=== PATIENT | female | born 1975 | race Caucasian/White ===

== ENCOUNTER 2017-05-11 17:52 | Emergency (ER) | payer SELFPAY ==
[2017-05-11 17:56] VITALS: PULSE 73; TEMP 98.3; BMI 25.0
--- NOTE | 2017-05-11 18:18 | PDOC ---
Attending Attestation - Resident Resident Name: Errol Ty - ED Attending Attestation I have performed the following: I have examined & evaluated the patient, The case was reviewed & discussed with the resident, I agree w/resident's findings & plan, Exceptions are as noted - HPI HPI: 05/11/17 19:49 Pt presents to the ED complaining of a three day history of left sided abdominal pain, nausea and vomiting. - Physicial Exam PE: 05/11/17 19:50 Abdomen is diffusely tender on the left side on my exam, without guarding or rebound. - Medical Decision Making 05/11/17 19:50 Pt presents to the ED complaining of L sided abdominal pain. HIstory of gastric weightloss surgery in [place]. Denies fever. Normal BM today. GIven history of gastric surgery, I am concerned for leak vs obstruction. will check CT and and reassess. Patient is also complaining of dysuria. Will check UA.
--- NOTE | 2017-05-11 18:27 | PDOC ---
History of Present Illness - General Chief Complaint: Pain Stated Complaint: ABD PAIN Time Seen by Provider: 05/11/17 18:16 - History of Present Illness Initial Comments: 05/11/17 18:28 Ms. Wyman is a 41 yo female with a significant past medical history of bariatric surgery who presents to the emergency department with a 2 day history of left sided abdominal pain with occasional nausea and vomiting. She says that the pain is intermittent and "stabbing" and that the pain causes the vomiting. Also, she reports pain increases while having bowel movements although her BM's are normal. The patient denies chest pain, shortness of breath, headache and dizziness. Denies fever, chills, nausea, vomit, diarrhea and constipation. Denies dysuria, frequency, urgency and hematuria. Allergies: Aspirin Past History - Past Medical History Allergies/Adverse Reactions: Allergies Allergy/AdvReac Type Severity Reaction Status Date / Time aspirin Allergy Mild "WATER Verified 05/11/17 17:54 BUMPS" Home Medications: Ambulatory Orders NK [No Known Home Medication] 08/30/15 Asthma: Yes - Immunization History Immunization Up to Date: Yes - Suicide/Smoking/Psychosocial Hx Smoking Status: No Smoking History: Never smoked Number of Cigarettes Smoked Daily: 0 Hx Alcohol Use: No Drug/Substance Use Hx: No Substance Use Type: None Review of Systems - Review of Systems Comments:: 05/11/17 18:28 GENERAL/CONSTITUTIONAL: No fever or chills. No weakness. HEAD, EYES, EARS, NOSE AND THROAT: No change in vision. No ear pain or discharge. No sore throat. CARDIOVASCULAR: No chest pain or shortness of breath RESPIRATORY: No cough, wheezing, or hemoptysis. GASTROINTESTINAL: +Pain to left side of abdoment that increases while defacating. +Nausea with vomiting from pain intermittently. No constipation. GENITOURINARY: No dysuria, frequency, or change in urination. MUSCULOSKELETAL: No joint or muscle swelling or pain. No neck or back pain. SKIN: No rash NEUROLOGIC: No headache, vertigo, loss of consciousness, or change in strength/ sensation. ENDOCRINE: No increased thirst. No abnormal weight change HEMATOLOGIC/LYMPHATIC: No anemia, easy bleeding, or history of blood clots. ALLERGIC/IMMUNOLOGIC: No hives or skin allergy. *Physical Exam - Vital Signs Last Vital Signs Temp Pulse Resp BP Pulse Ox 98.3 F 73 18 130/57 100 05/11/17 17:53 05/11/17 17:53 05/11/17 17:53 05/11/17 17:53 05/11/17 17:53 - Physical Exam Comments: 05/11/17 18:29 GENERAL: Awake, alert, and fully oriented, in no acute distress HEAD: No signs of trauma, normocephalic, atraumatic EYES: PERRLA, EOMI, sclera anicteric, conjunctiva clear ENT: Auricles normal inspection, hearing grossly normal, nares patent, oropharynx clear without exudates. Moist mucosa NECK: Normal ROM, supple, no lymphadenopathy, JVD, or masses LUNGS: No distress, speaks full sentences, clear to auscultation bilaterally HEART: Regular rate and rhythm, normal S1 and S2, no murmurs, rubs or gallops, peripheral pulses normal and equal bilaterally. ABDOMEN: +Acutely tender in LUQ and LLQ of abdomen to palpation. Soft, normoactive bowel sounds. No guarding, no rebound. No masses EXTREMITIES: Normal inspection, Normal range of motion, no edema. No clubbing or cyanosis. NEUROLOGICAL: Cranial nerves II through XII grossly intact. Normal speech, normal gait, no focal sensorimotor deficits SKIN: Warm, Dry, normal turgor, no rashes or lesions noted. ED Treatment Course - LABORATORY CBC & Chemistry Diagram: 05/11/17 18:40 05/11/17 18:40 Medical Decision Making - Medical Decision Making 05/11/17 19:00 Ms. Wyman presents with left sided abdominal pain with history of gastric surgery for weightloss in [place]. Patient to CT for evaluation of abdominal pain. 05/11/17 19:03 Patient signed out to Dr. Olivarez for further evaluation.
[2017-05-11] MEDS ORDERED: SODIUM CHLORIDE 1,000 ML IV STA (18:29)
[2017-05-11 18:51] VITALS: BP 130/58
[2017-05-11 19:02] LABS: BASOPHIL 1.2 % (0-2.0); EOSINOPHIL 3.7 % (0-4.5); MCH 28.4 pg (25.7-33.7); MCHC 33.7 g/dl (32.0-36.0); MEAN CELL VOLUME 84.5 fl (80-96); MEAN PLT VOLUME 7.5 fl (7.5-11.1); NEUTROPHILS 44.1 % (42.8-82.8); PLATELET COUNT 363 K/MM3 (134-434); RDW 15.4 % (11.6-15.6); WHITE BLOOD COUNT 5.5 K/mm3 (4.0-10.0)
[2017-05-11 19:28] LABS: ALBUMIN 3.6 g/dl (3.4-5.0); ANION GAP 5 (8-16); CALCIUM 8.3 mg/dL (8.5-10.1); CO2 28 mmol/L (21-32); CREATININE 0.7 mg/dL (0.55-1.02); GLUCOSE,RANDOM 92 mg/dL (74-106); SGPT/ALT 17 U/L (12-78)
[2017-05-11 19:39] LABS: ALK PHOS 54 U/L (45-117); BILIRUBIN,TOTAL 0.4 mg/dL (0.2-1.0); SGOT/AST 14 U/L (15-37); TOT PROT 7.1 g/dl (6.4-8.2)
[2017-05-11 19:43] LABS: URINE APPEARANCE CLEAR; URINE BILIRUBIN NEGATIVE (NEGATIVE); URINE BLOOD 2+ (NEGATIVE); URINE COLOR YELLOW; URINE GLUCOSE (UA) NEGATIVE (NEGATIVE); URINE KETONE NEGATIVE (NEGATIVE); URINE NITRITE NEGATIVE (NEGATIVE); URINE PROTEIN NEGATIVE (NEGATIVE); URINE UROBILINOGEN NEGATIVE mg/dL (0.2-1.0)
--- NOTE | 2017-05-11 20:11 | PDOC ---
*Physical Exam - Vital Signs Last Vital Signs Temp Pulse Resp BP Pulse Ox 98.3 F 73 18 130/58 100 05/11/17 17:53 05/11/17 17:53 05/11/17 17:53 05/11/17 18:44 05/11/17 17:53 - Physical Exam General Appearance: Yes: Nourished Respiratory/Chest: positive: Lungs Clear, Normal Breath Sounds Cardiovascular: positive: S1, S2, Murmur (Holosystolic Grade II murmur best appreciated @ 2 R intercostal space) Neurologic: positive: Fully Oriented, Alert ED Treatment Course - LABORATORY CBC & Chemistry Diagram: 05/11/17 18:47 05/11/17 18:47 - ADDITIONAL ORDERS Additional order review: Laboratory Results 05/11/17 05/11/17 18:47 18:47 Sodium 138 Potassium 3.8 Chloride 105 Carbon Dioxide 28 Anion Gap 5 L BUN 12 D Creatinine 0.7 Creat Clearance w eGFR > 60 Random Glucose 92 Calcium 8.3 L Total Bilirubin 0.4 AST 14 L ALT 17 Alkaline Phosphatase 54 Total Protein 7.1 Albumin 3.6 Urine Color Yellow Urine Appearance Clear Urine pH 5.0 Urine Protein Negative Urine Glucose (UA) Negative Urine Ketones Negative Urine Blood 2+ H Urine Nitrite Negative Urine Bilirubin Negative Urine Urobilinogen Negative Urine HCG, Qual Negative 05/11/17 18:47 RBC 4.44 MCV 84.5 D MCHC 33.7 RDW 15.4 D MPV 7.5 Neutrophils % 44.1 Lymphocytes % 40.6 H Monocytes % 10.4 H Eosinophils % 3.7 Basophils % 1.2 - Medications Given in the ED: ED Medications Discontinued Medications Generic Name Dose Route Start Last Admin Trade Name Freq PRN Reason Stop Dose Admin Sodium Chloride 1,000 mls @ 1,000 mls/hr 05/11/17 18:29 05/11/17 18:44 Normal Saline - IV 05/11/17 19:28 1,000 mls/hr ASDIR STA Administration Medical Decision Making - Medical Decision Making 05/11/17 20:07 Patient signed out by Dr. Keenan (Resident) Patient's drinking oral contrast in preparation for CT. 05/12/17 00:13 CT shows fibroid uterus, L ovarian cyst and free pelvic fluid with no evidence of pelvic masses, pneumoperitoneum, bowel obstruction or intra-abdominal abscess. Patient discharged home with return precautions and instruction to f/ u with PCP. *DC/Admit/Observation/Transfer Diagnosis at time of Disposition: Abdominal pain - Discharge Dispostion Disposition: HOME Condition at time of disposition: Good - Patient Instructions Printed Discharge Instructions: DI for Abdominal Pain-Adult Additional Instructions: Please return to the ED should you have any worsening or concerning symptoms. Please follow-up with your PCP in the next 5-7 days.
[2017-05-11 22:48] LABS: URINE MUCUS RARE; URINE RBC 2 /hpf (0-3); URINE WBC <1 /hpf (3-5)
== END 2017-05-12 00:42 | disposition home or self-care (01) ==
LOC: JER 17:52
PROC: 3E0337Z Introduction of Electrolytic and Water Balance Substance into Peripheral Vein, Percutaneous Approach (ICD-10-PCS; principal; 2017-05-11)
DX: R10.84 Generalized abdominal pain (principal); Z98.84 Bariatric surgery status
CPT/HCPCS: 36415; 74177-TC; 80053; 81003; 81015; 84703; 85025; 99283-25

== ENCOUNTER 2018-06-23 11:49 | Emergency (ER) | payer OTHER ==
[2018-06-23 11:58] VITALS: BMI 25.7
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
[2018-06-23] MEDS ORDERED: ACETAMINOPHEN 325 MG TABLET (FP) PO ONE (12:24)
[2018-06-23] MEDS ORDERED: ACETAMINOPHEN 325 MG TABLET (FP) ONE (12:28)
[2018-06-23] MEDS ORDERED: LIDOCAINE 5% TOPICAL PATCH TP ONE (12:39)
[2018-06-23] MEDS ORDERED: CYCLOBENZAPRINE HCL 5 MG TABLET PO ONE (12:39)
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
[2018-06-23] MEDS ORDERED: CYCLOBENZAPRINE HCL 10 MG TABLET (FP) ONE (12:48)
[2018-06-23] MEDS ORDERED: LIDOCAINE 5% TOPICAL PATCH ONE (12:48)
[2018-06-23 13:35] VITALS: BP 109/57; PULSE 57; TEMP 98
[2018-06-23] MEDS ORDERED: LIDOCAINE PATCH REMOVAL MC SCH (22:00)
== END 2018-06-23 13:36 | disposition home or self-care (01) ==
LOC: JER 11:49
DX: M25.512 Pain in left shoulder (principal); V43.52XA Car driver injured in collision with other type car in traffic accident, initial encounter; Y93.89 Activity, other specified; Y92.410 Unspecified street and highway as the place of occurrence of the external cause; J45.909 Unspecified asthma, uncomplicated
CPT/HCPCS: 36415; 72070-TC-FY; 72100-TC-FY; 73030-TC-LT-FY; 99282-25

== ENCOUNTER 2018-12-11 12:06 | Emergency (ER) | payer BC ==
[2018-12-11 12:26] VITALS: BP 111/68; PULSE 59; TEMP 97.9; BMI 26.6
--- NOTE | 2018-12-11 12:27 | PDOC ---
Rapid Medical Evaluation Time Seen by Provider: 12/11/18 12:22 Medical Evaluation: Allergies Allergy/AdvReac Type Severity Reaction Status Date / Time aspirin Allergy Mild "WATER Verified 06/23/18 11:58 BUMPS" 12/11/18 12:23 I have performed a brief in-person evaluation of this patient. The patient presents with a chief complaint of: pain and swelling to ft x 1 week, was given diclofenac by PCP in [place] w/o relief, denies recent travel/ocp/ surgeries Pertinent physical exam findings: mild edema to b/l ft, no ecchymosis/erythema I have ordered the following: urine The patient will proceed to the ED for further evaluation.
--- NOTE | 2018-12-11 15:14 | PDOC ---
History of Present Illness - General Chief Complaint: Edema Stated Complaint: SWELLING BILAT LEGS Time Seen by Provider: 12/11/18 12:22 - History of Present Illness Initial Comments: 12/11/18 15:13 43-year-old female without comorbidities presents for evaluation of bilateral leg edema right greater than left times one week her primary care physician saw her in place her on a course of diclofenac which hasn't really helped her. She has no systemic symptoms or associated pain. Past History - Past Medical History Allergies/Adverse Reactions: Allergies Allergy/AdvReac Type Severity Reaction Status Date / Time aspirin Allergy Mild "WATER Verified 12/11/18 12:23 BUMPS" Home Medications: Ambulatory Orders NK [No Known Home Medication] 12/11/18 Asthma: Yes COPD: No - Surgical History Abdominal Surgery: Yes (tummy tuck) - Immunization History Immunization Up to Date: Yes - Suicide/Smoking/Psychosocial Hx Smoking Status: No Smoking History: Never smoked Number of Cigarettes Smoked Daily: 0 Information on smoking cessation initiated: No Hx Alcohol Use: No Drug/Substance Use Hx: No Substance Use Type: None Review of Systems - Review of Systems Constitutional: Yes: See HPI. No: Fever *Physical Exam - Vital Signs Last Vital Signs Temp Pulse Resp BP Pulse Ox 97.9 F 59 L 16 111/68 100 12/11/18 12:23 12/11/18 12:23 12/11/18 12:23 12/11/18 12:23 12/11/18 12:23 - Physical Exam Comments: 12/11/18 15:12 HEAD: NC/AT EYES: Conjuntiva clear Ears: Canals and TM's normal NOSE: No d/c THROAT: Moist mucous membrances, oral pharanx clear, uvula midline NECK: Supple without adenopathy CARDIAC: S1 S2 LUNGS: CTA Full and Equal breath sounds ABDOMEN: Soft NT ND MS: Full ROM in all joints with 1+ pitting edema on the right and left. Right is slightly more edematous bilateral thighs and calves are soft and nontender. NEUROLOGIC: No gross sensory or motor deficits, NVID SKIN: Normal color and temperature no lesions or rashes ED Treatment Course - ADDITIONAL ORDERS Additional order review: Laboratory Results 12/11/18 13:25 Urine HCG, Qual Negative - RADIOLOGY Radiology Studies Ordered: Category Date Time Status DUPLEX VASCUL US-2LEGS [US] Stat Ultrasound 12/11/18 14:00 Completed Medical Decision Making - Medical Decision Making 12/11/18 15:12 Normal examination except for edema in bilateral lower extremities right was greater than left. There was no calf pain or thigh pain. I suspect maybe early- onset angioedema chest was clear do not suspect congestive heart failure however this is in the differential. I will have the patient follow-up with her primary care physician. *DC/Admit/Observation/Transfer Diagnosis at time of Disposition: Edema - Discharge Dispostion Disposition: HOME Condition at time of disposition: Stable Decision to Admit order: No - Referrals Referrals: Darian Arita MD [Staff Physician] - - Patient Instructions Printed Discharge Instructions: DI for Peripheral Edema -- Bilateral Additional Instructions: Your ultrasound study today was negative for any clots and your legs. Please follow-up with your primary care physician in one to 2 days for further evaluation and treatment options and return to the emergency room should symptoms worsen. You can try compression stockings which resulted the pharmacies to decrease the swelling in her legs. - Post Discharge Activity
== END 2018-12-11 15:17 | disposition home or self-care (01) ==
LOC: JERFT 12:06
DX: M79.89 Other specified soft tissue disorders (principal); J45.909 Unspecified asthma, uncomplicated
CPT/HCPCS: 84703; 93970-TC; 99281-25

== ENCOUNTER 2019-04-26 01:23 | Emergency (ER) | payer OTHER, BC ==
[2019-04-26 01:41] VITALS: BP 102/53; PULSE 69; TEMP 98.1; BMI 26.0
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
[2019-04-26] MEDS ORDERED: ACETAMINOPHEN 500 MG TABLET (FP) PO ONE (02:12)
[2019-04-26] MEDS ORDERED: METHOCARBAMOL 500 MG TABLET PO ONE (02:12)
[2019-04-26] MEDS ORDERED: ACETAMINOPHEN 325 MG TABLET (FP) ONE (02:15)
[2019-04-26] MEDS ORDERED: METHOCARBAMOL 500 MG TABLET ONE (02:15)
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
== END 2019-04-26 05:05 | disposition home or self-care (01) ==
LOC: JER 01:23
DX: S13.4XXA Sprain of ligaments of cervical spine, initial encounter (principal); V53.5XXA Driver of pick-up truck or van injured in collision with car, pick-up truck or van in traffic accident, initial encounter; Y92.411 Interstate highway as the place of occurrence of the external cause; Y93.89 Activity, other specified; Y99.8 Other external cause status; J45.909 Unspecified asthma, uncomplicated; Z88.6 Allergy status to analgesic agent
CPT/HCPCS: 70450-TC; 84703; 99282-25

== ENCOUNTER 2019-06-03 19:47 | Emergency (ER) | payer BC ==
[2019-06-03 20:00] VITALS: TEMP 98.1; BMI 24.1
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
[2019-06-03] MEDS ORDERED: ACETAMINOPHEN 1000 MG/100 ML VIAL (NON FORMULARY) IVPB ONE (20:28)
[2019-06-03] MEDS ORDERED: ONDANSETRON 4 MG/2 ML VIAL IVPUSH ONE (20:28)
[2019-06-03] MEDS ORDERED: ACETAMINOPHEN INJECTION 100 ML IVPB ONE (20:43)
[2019-06-03] MEDS ORDERED: ONDANSETRON 4 MG/2 ML VIAL ONE (20:43)
[2019-06-03 20:46] LABS: BASO % 1.2 % (0-2.0); EOS % 0.9 % (0-4.5); HEMOGLOBIN 12.3 GM/dL (10.7-15.3); LYMPH % 34.4 % (8-40); MCH 27.2 pg (25.7-33.7); MCHC 33.2 g/dl (32.0-36.0); MEAN CELL VOLUME 82.1 fl (80-96); MEAN PLT VOLUME 7.2 fl (7.5-11.1); MONO % 7.5 % (3.8-10.2); PLATELET COUNT 475 K/MM3 (134-434); RBC 4.51 M/mm3 (3.60-5.2); RDW 14.5 % (11.6-15.6); WHITE BLOOD COUNT 5.9 K/mm3 (4.0-10.0)
[2019-06-03 21:36] LABS: ALBUMIN 3.8 g/dl (3.4-5.0); ALK PHOS 54 U/L (45-117); ANION GAP 5 MMOL/L (8-16); BILIRUBIN,TOTAL 0.3 mg/dL (0.2-1); BLOOD UREA NITROGEN 12.7 mg/dL (7-18); CALCIUM 9.2 mg/dL (8.5-10.1); CHLORIDE 104 mmol/L (98-107); CO2 29 mmol/L (21-32); CREATININE 0.8 mg/dL (0.55-1.3); GLUCOSE,RANDOM 121 mg/dL (74-106); SGOT/AST 29 U/L (15-37); SGPT/ALT 24 U/L (13-61); SODIUM 138 mmol/L (136-145); TOT PROT 7.9 g/dl (6.4-8.2)
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
--- NOTE | 2019-06-03 21:39 | PDOC ---
Documentation entered by Himanshu Germain SCRIBE, acting as scribe for Nadine Gan MD. Nadine Gan MD: This documentation has been prepared by the Marcellus dunn Daniel, SCRIBE, under my direction and personally reviewed by me in its entirety. I confirm that the documentation accurately reflects all work, treatment, procedures, and medical decision making performed by me. Attending Attestation - Resident Resident Name: Kiera Reed - ED Attending Attestation I have performed the following: I have examined & evaluated the patient, The case was reviewed & discussed with the resident, I agree w/resident's findings & plan, Exceptions are as noted - HPI HPI: 06/03/19 21:08 43 yo female p/w vaginal bleeding and LLQ pain 06/03/19 21:35 The patient is a 43 year old G0 female with a past medical history of fibroids here today for evaluation of left lower quadrant pain and vaginal bleeding. The patient reports that her left lower quadrant pain started yesterday and describes it as cramping. She notes that her vaginal bleeding began yesterday as well and started as light spotting which became heavier today with passage of clots. Patient denies headache, lightheadedness. Denies fever, chills. Denies chest pain, shortness of breath. Denies nausea, vomiting, diarrhea. Allergies: aspirin - Physicial Exam PE: 06/03/19 21:[address] Reed's physical exam 06/03/19 21:38 - Medical Decision Making 06/03/19 21:32 43 yo female p/w vaginal bleeding and passage of large clots and a history of fibroids 06/03/19 21:39 plan labs,pelvic US 06/03/19 23:00 Negative test 06/03/19 23:01 Labs reviewed and there is no significant anemia 06/04/19 02:12 pelvic US found multiple fibroids d/s home with director of audiology follow up
[2019-06-03 22:00] LABS: EPI CELLS 16.7 /HPF (0-5/HPF); HYALINE CASTS 6 /lpf (0-8); URINE APPEARANCE CLOUDY; URINE BACTERIA 39.7 /hpf (NEGATIVE); URINE BILIRUBIN NEGATIVE (NEGATIVE); URINE COLOR YELLOW; URINE GLUCOSE (UA) NEGATIVE (NEGATIVE); URINE KETONE NEGATIVE (NEGATIVE); URINE LEUK ESTERASE NEGATIVE (NEGATIVE); URINE NITRITE NEGATIVE (NEGATIVE); URINE PROTEIN NEGATIVE (NEGATIVE); URINE RBC 220 /hpf (0-4); URINE WBC 8 /hpf (0-5)
[2019-06-03 23:56] VITALS: BP 128/74; PULSE 74
== END 2019-06-03 23:56 | disposition home or self-care (01) ==
LOC: JER 19:47
PROC: 3E033GC Introduction of Other Therapeutic Substance into Peripheral Vein, Percutaneous Approach (ICD-10-PCS; principal; 2019-06-03)
PROC: 3E033NZ Introduction of Analgesics, Hypnotics, Sedatives into Peripheral Vein, Percutaneous Approach (ICD-10-PCS; 2019-06-03)
DX: D25.9 Leiomyoma of uterus, unspecified (principal); N83.201 Unspecified ovarian cyst, right side; Z88.6 Allergy status to analgesic agent
CPT/HCPCS: 36415; 76830-TC; 80053; 81003; 84702; 84703; 85025; 87086; 99283-25; J0131

== ENCOUNTER 2021-03-16 09:20 | Emergency (ER) | payer BC ==
[2021-03-16 09:34] VITALS: BP 113/72; PULSE 72; TEMP 98.6; BMI 26.6
== END 2021-03-16 18:16 | disposition home or self-care (01) ==
LOC: JER 09:20
DX: R50.9 Fever, unspecified (principal); R09.81 Nasal congestion; Z20.822 Contact with and (suspected) exposure to COVID-19
CPT/HCPCS: 99283-25; C9803; U0003; U0005

== ENCOUNTER 2021-04-25 12:42 | Emergency (ER) | payer BC ==
[2021-04-25 13:02] VITALS: BP 121/66; PULSE 74; TEMP 98.7; BMI 26.6
[2021-04-25] MEDS ORDERED: ACETAMINOPHEN 500 MG TABLET (FP) PO ONE (14:15)
[2021-04-25] MEDS ORDERED: ACETAMINOPHEN 500 MG TABLET (FP) ONE (14:32)
[2021-04-25 15:20] LABS: BASO % 0.5 % (0-2.0); EOS % 2.6 % (0-4.5); HEMATOCRIT 33.7 % (32.4-45.2); HEMOGLOBIN 10.9 GM/dL (10.7-15.3); LYMPH % 33.1 % (8-40); MCH 23.5 pg (25.7-33.7); MCHC 32.2 g/dl (32.0-36.0); MEAN CELL VOLUME 73.1 fl (80-96); MEAN PLT VOLUME 7.6 fl (7.5-11.1); MONO % 6.2 % (3.8-10.2); NEUT % 57.6 % (42.8-82.8); PLATELET COUNT 397 10^3/uL (134-434); RBC 4.61 M/mm3 (3.60-5.2); RDW 18.1 % (11.6-15.6); WHITE BLOOD COUNT 4.9 K/mm3 (4.0-10.0)
[2021-04-25 15:32] LABS: HCG,QUALITATIVE URINE Negative
[2021-04-25 15:33] LABS: CHLORIDE 108 mmol/L (98-107); SODIUM 140 mmol/L (136-145)
[2021-04-25 15:36] LABS: PH,URINE 6.5 (5.0-8.0); URINE APPEARANCE CLEAR; URINE BILIRUBIN NEGATIVE (NEGATIVE); URINE COLOR YELLOW; URINE GLUCOSE (UA) NEGATIVE (NEGATIVE); URINE KETONE NEGATIVE (NEGATIVE); URINE LEUK ESTERASE NEGATIVE (NEGATIVE); URINE NITRITE NEGATIVE (NEGATIVE); URINE PROTEIN NEGATIVE (NEGATIVE)
[2021-04-25 15:37] LABS: CALCIUM 8.7 mg/dL (8.5-10.1)
[2021-04-25 15:38] LABS: ALBUMIN 3.8 g/dl (3.4-5.0); ANION GAP 7 MMOL/L (8-16); BLOOD UREA NITROGEN 11.7 mg/dL (7-18); CO2 25 mmol/L (21-32); GLUCOSE,RANDOM 87 mg/dL (74-106); MAGNESIUM 1.9 mg/dL (1.8-2.4)
[2021-04-25 15:41] LABS: CREATININE 0.7 mg/dL (0.55-1.3); SGOT/AST 9 U/L (15-37); SGPT/ALT 15 U/L (13-61)
[2021-04-25 15:42] LABS: BILIRUBIN,TOTAL 0.3 mg/dL (0.2-1); TOT PROT 7.7 g/dl (6.4-8.2)
[2021-04-25 15:44] LABS: ALK PHOS 49 U/L (45-117)
== END 2021-04-25 18:55 | disposition home or self-care (01) ==
LOC: JER 12:42
DX: R07.9 Chest pain, unspecified (principal)
CPT/HCPCS: 36415; 71046-TC-FY; 80053; 81003; 82550; 83735; 84484; 84703; 85025; 85379; 93005; 93010; 99285-25; C9803; U0003; U0005

== ENCOUNTER 2021-10-20 18:22 | Emergency (ER) | payer BC ==
[2021-10-20 18:46] VITALS: BP 101/68; PULSE 75; TEMP 98.5; BMI 28.3
== END 2021-10-20 20:10 | disposition home or self-care (01) ==
LOC: JERFT 18:22
DX: K08.89 Other specified disorders of teeth and supporting structures (principal)
CPT/HCPCS: 99283-25

== ENCOUNTER 2022-08-02 14:28 | Emergency (ER) | payer BC ==
[2022-08-02] MEDS ORDERED: ACETAMINOPHEN 500 MG TABLET (FP) PO ONE (14:41)
[2022-08-02 14:46] VITALS: BP 103/59; PULSE 64; RESP 2; TEMP 98.6; BMI 26.6
[2022-08-02] MEDS ORDERED: LIDOCAINE 5% TOPICAL PATCH TP ONE (14:49)
[2022-08-02] MEDS ORDERED: LIDOCAINE 5% TOPICAL PATCH ONE (15:35)
[2022-08-02] MEDS ORDERED: ACETAMINOPHEN 500 MG TABLET (FP) ONE (15:35)
[2022-08-02] MEDS ORDERED: CYCLOBENZAPRINE HCL 10 MG TABLET (FP) PO ONE (15:38)
[2022-08-02] MEDS ORDERED: CYCLOBENZAPRINE HCL 10 MG TABLET (FP) ONE (15:41)
[2022-08-02] MEDS ORDERED: LIDOCAINE PATCH REMOVAL MC SCH (22:00)
== END 2022-08-02 16:27 | disposition home or self-care (01) ==
LOC: JERFT 14:28 → JER 14:28 → JERFT 16:27
DX: R07.89 Other chest pain (principal)
CPT/HCPCS: 71046-TC-FY; 93005; 93010; 99284-25

== ENCOUNTER 2022-11-13 19:01 | Emergency (ER) | payer BC ==
[2022-11-13 19:14] VITALS: BMI 26.6
[2022-11-13] MEDS ORDERED: FAMOTIDINE 20 MG/50 ML IVPB 20 MG/50 ML MG IVPB ONE ×2 (21:28→21:46)
[2022-11-13] MEDS ORDERED: MAG HYDROX/AL HYDROX/SIMETH 30 ML UNIT-DOSE CUP PO ONE (21:28)
[2022-11-13] MEDS ORDERED: MAG HYDROX/AL HYDROX/SIMETH 30 ML UNIT-DOSE CUP ONE (21:45)
[2022-11-13 22:00] LABS: BASO % 0.8 % (0-2.0); EOS % 2.4 % (0-4.5); HEMOGLOBIN 10.9 GM/dL (10.7-15.3); LYMPH % 36.7 % (8-40); MCHC 32.9 g/dl (32.0-36.0); MEAN CELL VOLUME 75.8 fl (80-96); MONO % 8.8 % (3.8-10.2); NEUT % 51.3 % (42.8-82.8); PLATELET COUNT 387 10^3/uL (134-434); RBC 4.35 M/mm3 (3.60-5.2); RDW 15.3 % (11.6-15.6); WHITE BLOOD COUNT 4.8 K/mm3 (4.0-10.0)
[2022-11-13 22:01] LABS: PH,URINE 6.5 (5.0-8.0); URINE APPEARANCE CLEAR; URINE BILIRUBIN NEGATIVE (NEGATIVE); URINE COLOR YELLOW; URINE GLUCOSE (UA) NEGATIVE (NEGATIVE); URINE KETONE NEGATIVE (NEGATIVE); URINE LEUK ESTERASE NEGATIVE (NEGATIVE); URINE NITRITE NEGATIVE (NEGATIVE); URINE PROTEIN NEGATIVE (NEGATIVE); URINE UROBILINOGEN 0.2 mg/dL (0.2-1.0)
[2022-11-13 22:37] LABS: ALBUMIN 3.7 g/dl (3.4-5.0); ALK PHOS 49 U/L (45-117); ANION GAP 5 MMOL/L (8-16); BILIRUBIN,TOTAL 0.3 mg/dL (0.2-1); BLOOD UREA NITROGEN 10.5 mg/dL (7-18); CALCIUM 8.7 mg/dL (8.5-10.1); CHLORIDE 109 mmol/L (98-107); CO2 26 mmol/L (21-32); CREATININE 0.7 mg/dL (0.55-1.3); GLUCOSE,RANDOM 84 mg/dL (74-106); LIPASE 103 U/L (73-393); POTASSIUM 4.1 mmol/L (3.5-5.1); SGOT/AST 11 U/L (15-37); SGPT/ALT 19 U/L (13-61); SODIUM 140 mmol/L (136-145); TOT PROT 7.4 g/dl (6.4-8.2)
[2022-11-14] MEDS ORDERED: SODIUM CHLORIDE 0.9% 500 ML INFUS.BAG IV ONE (01:01)
[2022-11-14 01:07] VITALS: BP 120/65; PULSE 66; RESP 14; TEMP 98.2
== END 2022-11-14 02:09 | disposition home or self-care (01) ==
LOC: JER 19:01
PROC: 3E033GC Introduction of Other Therapeutic Substance into Peripheral Vein, Percutaneous Approach (ICD-10-PCS; principal; 2022-11-13)
DX: R10.2 Pelvic and perineal pain (principal); R10.33 Periumbilical pain; R63.0 Anorexia
CPT/HCPCS: 36415; 74177-TC; 76705-TC; 76830-TC; 80053; 81003; 83690; 84702; 85025; 87086; 87186; 99285-25; Q9967

== ENCOUNTER 2023-01-17 15:46 | Emergency (ER) | payer BC ==
[2023-01-17 16:01] VITALS: BP 130/74; PULSE 70; RESP 18; TEMP 98.2; BMI 27.4
[2023-01-17] MEDS ORDERED: ACETAMINOPHEN 1000 MG/100 ML BAG IVPB ONE (17:16)
[2023-01-17] MEDS ORDERED: ONDANSETRON 4 MG/2 ML VIAL IVPUSH ONE (17:16)
[2023-01-17] MEDS ORDERED: SODIUM CHLORIDE 0.9% 500 ML INFUS.BAG IV ONE (17:16)
[2023-01-17] MEDS ORDERED: ONDANSETRON 4 MG/2 ML VIAL ONE (17:46)
[2023-01-17 18:12] LABS: BASO % 1.5 % (0-2.0); EOS % 5.7 % (0-4.5); HEMOGLOBIN 10.1 GM/dL (10.7-15.3); LYMPH % 36.8 % (8-40); MCH 23.9 pg (25.7-33.7); MCHC 31.6 g/dl (32.0-36.0); MEAN CELL VOLUME 75.5 fl (80-96); MEAN PLT VOLUME 7.3 fl (7.5-11.1); MONO % 6.6 % (3.8-10.2); NEUT % 49.4 % (42.8-82.8); PLATELET COUNT 460 10^3/uL (134-434); RBC 4.24 M/mm3 (3.60-5.2); WHITE BLOOD COUNT 3.8 K/mm3 (4.0-10.0)
[2023-01-17 18:14] LABS: PH,URINE 8.5 (5.0-8.0); URINE APPEARANCE CLEAR; URINE BILIRUBIN NEGATIVE (NEGATIVE); URINE COLOR YELLOW; URINE GLUCOSE (UA) NEGATIVE (NEGATIVE); URINE KETONE NEGATIVE (NEGATIVE); URINE LEUK ESTERASE NEGATIVE (NEGATIVE); URINE NITRITE NEGATIVE (NEGATIVE); URINE PROTEIN NEGATIVE (NEGATIVE); URINE UROBILINOGEN 0.2 mg/dL (0.2-1.0)
[2023-01-17 18:15] LABS: HCG,QUALITATIVE URINE Negative
[2023-01-17 18:29] LABS: CALCIUM 8.9 mg/dL (8.5-10.1)
[2023-01-17 18:30] LABS: ALBUMIN 3.4 g/dl (3.4-5.0); BLOOD UREA NITROGEN 11.2 mg/dL (7-18)
[2023-01-17 18:33] LABS: CREATININE 0.7 mg/dL (0.55-1.3)
[2023-01-17 18:34] LABS: BILIRUBIN,TOTAL 0.3 mg/dL (0.2-1); TOT PROT 7.2 g/dl (6.4-8.2)
== END 2023-01-17 19:55 | disposition home or self-care (01) ==
LOC: JER 15:46
PROC: 3E033NZ Introduction of Analgesics, Hypnotics, Sedatives into Peripheral Vein, Percutaneous Approach (ICD-10-PCS; principal; 2023-01-17)
PROC: 3E033GC Introduction of Other Therapeutic Substance into Peripheral Vein, Percutaneous Approach (ICD-10-PCS; 2023-01-17)
DX: R11.0 Nausea (principal); R14.0 Abdominal distension (gaseous); R10.13 Epigastric pain; R10.10 Upper abdominal pain, unspecified
CPT/HCPCS: 36415; 74177-TC; 80053; 81003; 83690; 84703; 85025; 87086; 87186; 99285-25; Q9967

== ENCOUNTER 2023-03-28 16:14 | Emergency (ER) | payer BC ==
[2023-03-28 16:30] VITALS: BMI 26.6
[2023-03-28] MEDS ORDERED: KETOROLAC TROMETHAMINE 30 MG/1 ML VIAL IM ONE (17:05)
[2023-03-28] MEDS ORDERED: KETOROLAC TROMETHAMINE 30 MG/1 ML VIAL ONE (17:23)
[2023-03-28 18:06] VITALS: BP 121/72; PULSE 82; RESP 16; TEMP 98.5
== END 2023-03-28 17:42 | disposition home or self-care (01) ==
LOC: JERFT 16:14
PROC: 3E0233Z Introduction of Anti-inflammatory into Muscle, Percutaneous Approach (ICD-10-PCS; principal; 2023-03-28)
DX: S80.01XA Contusion of right knee, initial encounter (principal); W01.0XXA Fall on same level from slipping, tripping and stumbling without subsequent striking against object, initial encounter; Z20.822 Contact with and (suspected) exposure to COVID-19
CPT/HCPCS: 0241U-QW; 73562-TC-RT-FY; 99284-25

== ENCOUNTER 2024-09-06 11:48 | Emergency (ER) | payer BC, OTHER ==
[2024-09-06 11:57] VITALS: BP 120/45; PULSE 61; RESP 18; TEMP 97.9; BMI 23.3
[2024-09-06] MEDS ORDERED: ONDANSETRON 4 MG/2 ML VIAL ONE ×2 (12:26→19:43)
[2024-09-06] MEDS ORDERED: ACETAMINOPHEN INJECTION 100 ML ONE (12:26)
[2024-09-06] MEDS: SODIUM CHLORIDE 0.9% 500 ML INFUS.BAG IV ONE ×2 (12:54→19:55)
[2024-09-06] MEDS: ONDANSETRON 4 MG/2 ML VIAL IVPUSH ONE ×2 (12:54→20:04)
[2024-09-06] MEDS: ACETAMINOPHEN 1000 MG/100 ML BAG IVPB ONE (12:54)
[2024-09-06 13:04] LABS: BASO % 0.2 % (0-2.0); EOS % 1.4 % (0-4.5); HEMATOCRIT 28.9 % (32.4-45.2); HEMOGLOBIN 9.1 GM/dL (10.7-15.3); LYMPH % 23.7 % (8-40); MCHC 31.3 g/dl (32.0-36.0); MEAN CELL VOLUME 73.5 fl (80-96); MEAN PLT VOLUME 6.5 fl (7.5-11.1); MONO % 8.5 % (3.8-10.2); NEUT % 66.2 % (42.8-82.8); PLATELET COUNT 408 10^3/uL (134-434); RBC 3.93 M/mm3 (3.60-5.2); RDW 16.2 % (11.6-15.6); WHITE BLOOD COUNT 4.3 K/mm3 (4.0-10.0)
[2024-09-06 13:17] LABS: POTASSIUM 4.2 mmol/L (3.5-5.1)
[2024-09-06 13:19] LABS: CALCIUM 8.6 mg/dL (8.5-10.1)
[2024-09-06 13:20] LABS: ALBUMIN 3.2 g/dl (3.4-5.0); BLOOD UREA NITROGEN 9.9 mg/dL (7-18)
[2024-09-06 13:23] LABS: CREATININE 0.7 mg/dL (0.55-1.3)
[2024-09-06 13:24] LABS: TOT PROT 6.6 g/dl (6.4-8.2)
[2024-09-06 13:25] LABS: BILIRUBIN,TOTAL 0.3 mg/dL (0.2-1)
[2024-09-06 15:20] LABS: HIV INTERPRETATION NEGATIVE (NEGATIVE)
[2024-09-06 15:34] LABS: EPI CELLS 12 /uL (0-25.1); HYALINE CASTS 1 /uL (0-3.1); PH,URINE 6.5 (5.0-8.0); URINE APPEARANCE CLOUDY; URINE BACTERIA 164 /uL (0-1359); URINE BILIRUBIN NEGATIVE (NEGATIVE); URINE COLOR YELLOW; URINE GLUCOSE (UA) NEGATIVE (NEGATIVE); URINE KETONE NEGATIVE (NEGATIVE); URINE LEUK ESTERASE 1+ (NEGATIVE); URINE NITRITE NEGATIVE (NEGATIVE); URINE PROTEIN 1+ (NEGATIVE); URINE RBC 107 /uL (0-23.9); URINE WBC 2341 /uL (0-25.8)
[2024-09-06] MEDS ORDERED: CEFTRIAXONE 1 G/50 ML PREMIX 50 ML IVPB ONE (16:15)
[2024-09-06] MEDS: CEFTRIAXONE 1 GM in DEXTROSE 5%-WATER - 100 ML IVPB ONE (16:24)
[2024-09-06] MEDS ORDERED: MORPHINE SULFATE 2 MG/ML SYRINGE ONE (19:43)
[2024-09-06] MEDS: morphine CARPU-JECT 2 MG/1 ML DISP.SYRIN IVPUSH ONE (19:55)
== END 2024-09-06 20:42 | disposition home or self-care (01) ==
LOC: JER 11:48
PROC: 3E03329 Introduction of Other Anti-infective into Peripheral Vein, Percutaneous Approach (ICD-10-PCS; principal; 2024-09-06)
PROC: 3E033NZ Introduction of Analgesics, Hypnotics, Sedatives into Peripheral Vein, Percutaneous Approach (ICD-10-PCS; 2024-09-06)
PROC: 3E033NZ Introduction of Analgesics, Hypnotics, Sedatives into Peripheral Vein, Percutaneous Approach (ICD-10-PCS; 2024-09-06)
PROC: 3E033GC Introduction of Other Therapeutic Substance into Peripheral Vein, Percutaneous Approach (ICD-10-PCS; 2024-09-06)
PROC: 3E033GC Introduction of Other Therapeutic Substance into Peripheral Vein, Percutaneous Approach (ICD-10-PCS; 2024-09-06)
DX: N39.0 Urinary tract infection, site not specified (principal); K59.00 Constipation, unspecified; D25.9 Leiomyoma of uterus, unspecified; R11.2 Nausea with vomiting, unspecified; R19.7 Diarrhea, unspecified; R30.9 Painful micturition, unspecified; R50.9 Fever, unspecified; Z20.822 Contact with and (suspected) exposure to COVID-19
CPT/HCPCS: 0241U-QW; 36415; 74177-TC; 80053; 81003; 83690; 84703; 85025; 86803; 87086; 87389; 99285-25; J0131; Q9967

== ENCOUNTER 2024-10-10 01:08 | Emergency (ER) | payer OTHER ==
[2024-10-10 01:15] VITALS: BP 113/63; PULSE 60; RESP 18; TEMP 98.1; BMI 23.3
[2024-10-10] MEDS: ACETAMINOPHEN 500 MG TABLET (FP) PO ONE (01:47)
[2024-10-10] MEDS ORDERED: ACETAMINOPHEN 500 MG TABLET (FP) ONE (01:49)
[2024-10-10] MEDS: IBUPROFEN 400 MG TABLET (FP) PO ONE (02:40)
[2024-10-10] MEDS ORDERED: IBUPROFEN 400 MG TABLET (FP) PO ONE (02:57)
== END 2024-10-10 03:17 | disposition home or self-care (01) ==
LOC: JER 01:08
DX: M25.511 Pain in right shoulder (principal); M79.601 Pain in right arm; W19.XXXA Unspecified fall, initial encounter
CPT/HCPCS: 73030-TC-RT-FY; 73060-TC-RT-FY; 99283-25

== ENCOUNTER 2025-02-17 20:09 | Emergency (ER) | payer OTHER ==
[2025-02-17 20:18] VITALS: BP 119/59; PULSE 83; RESP 19; TEMP 97.8; BMI 26.6
== END 2025-02-17 20:56 | disposition home or self-care (01) ==
LOC: JERFT 20:09
DX: Z03.89 Encounter for observation for other suspected diseases and conditions ruled out (principal)
CPT/HCPCS: 99283-25

== ENCOUNTER 2025-03-11 22:16 | Emergency (ER) | payer OTHER ==
[2025-03-11 22:22] VITALS: BMI 25.4
[2025-03-11] MEDS ORDERED: MAG HYDROX/AL HYDROX/SIMETH 30 ML UNIT-DOSE CUP ONE (23:01)
[2025-03-11] MEDS ORDERED: ACETAMINOPHEN 325 MG TABLET (FP) ONE (23:02)
[2025-03-11] MEDS ORDERED: FAMOTIDINE 10 MG TABLET ONE (23:02)
[2025-03-11] MEDS: FAMOTIDINE 10 MG TABLET PO ONE (23:12)
[2025-03-11] MEDS: ACETAMINOPHEN 500 MG TABLET (FP) PO ONE (23:12)
[2025-03-11] MEDS: MAG HYDROX/AL HYDROX/SIMETH 30 ML UNIT-DOSE CUP PO ONE (23:12)
[2025-03-11 23:46] LABS: EPI CELLS >36 /uL (0-25.1); HYALINE CASTS 1 /uL (0-3.1); URINE APPEARANCE CLEAR; URINE BACTERIA 1171 /uL (0-1359); URINE BILIRUBIN NEGATIVE (NEGATIVE); URINE COLOR YELLOW; URINE GLUCOSE (UA) NEGATIVE (NEGATIVE); URINE KETONE NEGATIVE (NEGATIVE); URINE LEUK ESTERASE TRACE (NEGATIVE); URINE NITRITE NEGATIVE (NEGATIVE); URINE PROTEIN NEGATIVE (NEGATIVE); URINE UROBILINOGEN 1.0 mg/dL (0.2-1.0); URINE WBC 27 /uL (0-25.8)
[2025-03-11 23:59] LABS: URINE RBC 65.8 /uL (0-23.9)
[2025-03-12 00:51] LABS: MCHC 29.3 g/dl (32.2-35.5); MEAN CELL VOLUME 75.8 fl (79.4-94.8); MEAN PLT VOLUME 8.7 fl (9.4-12.3); RDW 17.1 % (12.2-17.1)
[2025-03-12 01:15] LABS: GLUCOSE,RANDOM 99.0 mg/dL (74-106)
[2025-03-12 01:16] LABS: TOT PROT 7.1 g/dl (6.4-8.2)
[2025-03-12 01:17] LABS: CO2 26.0 mmol/L (21-32)
[2025-03-12 01:18] LABS: ALK PHOS 56.0 U/L (40-150)
[2025-03-12 01:19] VITALS: BP 106/48; PULSE 59; RESP 18; TEMP 98.3
[2025-03-12 01:21] LABS: CREATININE 0.73 mg/dL (0.55-1.3); SGOT/AST 29.0 U/L (5-34); SGPT/ALT 37.0 U/L (0-55)
== END 2025-03-12 02:13 | disposition home or self-care (01) ==
LOC: JER 22:16
DX: R10.30 Lower abdominal pain, unspecified (principal); R14.0 Abdominal distension (gaseous); R11.0 Nausea; R50.9 Fever, unspecified
CPT/HCPCS: 36415; 80053; 81003; 84703; 85025; 87086; 99284-25